=== PATIENT | male | born 1985 | race Caucasian/White ===

== ENCOUNTER 2016-11-08 02:45 | Emergency (ER) | payer BC, OTHER ==
[2016-11-08] MEDS ORDERED: Ketorolac 60 MG/2 ML SDV IM ONE (03:13)
[2016-11-08] MEDS: Proparacaine 0.5% Ophth Soln 15 ML Bottle EYEBOTH SCH ×2 (03:24→04:00)
--- NOTE | 2016-11-08 03:50 | EDM.PDOC ---
ED HPI GENERAL MEDICAL PROBLEM - General Chief Complaint: ENT Problem Stated Complaint: EYE PROBLEM Time Seen by Provider: 11/08/16 03:44 - History of Present Illness INITIAL COMMENTS - FREE TEXT/NARRATIVE: HISTORY AND PHYSICAL: History of present illness: Patient presents with concern of bilateral eye pain after prolonged contact lens use he states he was at work moving but now is irritation and light sensitivity Review of systems: As per history of present illness and below otherwise all systems reviewed and negative. Past medical history: As per history of present illness and as reviewed below otherwise noncontributory. Surgical history: As per history of present illness and as reviewed below otherwise noncontributory. Social history: No reported history of drug or alcohol abuse. Family history: As per history of present illness and as reviewed below otherwise noncontributory. Physical exam: HEENT: Atraumatic, normocephalic, pupils reactive, negative for conjunctival pallor or scleral icterus, mucous membranes moist, throat clear, neck supple, nontender, trachea midline. Conjunctiva are injected bilaterally fluorescein stain is negative no foreign body anterior chamber clear Lungs: Clear to auscultation, breath sounds equal bilaterally, chest nontender. Heart: S1S2, regular, negative for clicks, rubs, or JVD. Abdomen: Soft, nondistended, nontender. Negative for masses or hepatosplenomegaly. Negative for costovertebral tenderness. Pelvis: Stable nontender. Genitourinary: Deferred. Rectal: Deferred. Extremities: Atraumatic, negative for cords or calf pain. Neurovascular unremarkable. Neuro: Awake, alert, oriented. Cranial nerves II through XII unremarkable. Cerebellum unremarkable. Motor and sensory unremarkable throughout. Exam nonfocal. Diagnostics: See above Therapeutics: Irrigation with saline were proparacaine drops erythromycin ophthalmic ointment Impression: #1 conjunctivitis #2 iritis Definitive disposition and diagnosis as appropriate pending reevaluation and review of above. Bilateral Eye Pain Score (Numeric/FACES): 7 - Related Data Allergies Allergy/AdvReac Type Severity Reaction Status Date / Time No Known Allergies Allergy Verified 04/27/14 09:50 Home Meds: Home Meds Acetaminophen/HYDROcodone [[place] 325-5 MG] 1 - 2 tab PO Q4H #30 tablet 11/01/15 [Rx] Amoxicillin [Amoxil] 1,000 mg PO Q12HR #52 cap 11/01/15 [Rx] Clarithromycin [Biaxin] 500 mg PO BID #26 tablet 11/01/15 [Rx] Pantoprazole [Protonix] 40 mg PO BIDAC #26 tab.cr 11/01/15 [Rx] Sucralfate [Carafate] 1 gm PO QIDACANDBED #120 cup 11/01/15 [Rx] Past Medical History - Past Health History Medical/Surgical History: Denies Medical/Surgical History - Infectious Disease History Infectious Disease History: Reports: Influenza Social & Family History - Family History Family Medical History: Noncontributory - Tobacco Use Smoking Status *Q: Never Smoker Second Hand Smoke Exposure: No - Caffeine Use Caffeine Use: Reports: Energy drinks Caffeine Use Comment: 2drinks/day - Alcohol Use Days Per Week of Alcohol Use: 1 Number of Drinks Per Day: 1 Total Drinks Per Week: 1 - Recreational Drug Use Recreational Drug Use: No ED ROS GENERAL - Review of Systems Review Of Systems: ROS reveals no pertinent complaints other than HPI. ED EXAM, GENERAL - Physical Exam Exam: See Below (See dictation) Course - Vital Signs Last Recorded V/S: Last Vital Signs Temp 36.7 C 11/08/16 02:48 Pulse 75 11/08/16 02:48 Resp 18 11/08/16 02:48 BP 125/81 11/08/16 02:48 Pulse Ox 98 11/08/16 02:48 - Orders/Labs/Meds Orders: Active Orders 24 hr Category Date Time Status Proparacaine [Proparacaine 0.5% Ophth Soln] Med 11/08/16 03:15 Active 1 ml EYEBOTH STAT Medication Orders Proparacaine HCl (Proparacaine 0.5% Ophth Soln) 1 ml EYEBOTH STAT SEGUN Last Admin: 11/08/16 03:24 Dose: 2 drop Meds: Medications Generic Name Dose Route Start Last Admin Trade Name Freq PRN Reason Stop Dose Admin Proparacaine HCl 1 ml 11/08/16 03:15 11/08/16 03:24 Proparacaine 0.5% Ophth Soln EYEBOTH 2 drop STAT SEGUN Administration Discontinued Medications Generic Name Dose Route Start Last Admin Trade Name Freq PRN Reason Stop Dose Admin Ketorolac Tromethamine 60 mg 11/08/16 03:13 11/08/16 03:21 Toradol IM 11/08/16 03:14 60 mg STAT ONE Administration Departure - Departure Time of Disposition: 03:49 Disposition: Home, Self-Care 01 Condition: good Clinical Impression: Conjunctivitis, Iritis Forms: ED Department Discharge Additional Instructions: The following information is given to patients seen in the emergency department who are being discharged to home. This information is to outline your options for follow-up care. We provide all patients seen in our emergency department with a follow-up referral. The need for follow-up, as well as the timing and circumstances, are variable depending upon the specifics of your emergency department visit. If you don't have a primary care physician on staff, we will provide you with a referral. We always advise you to contact your personal physician following an emergency department visit to inform them of the circumstance of the visit and for follow-up with them and/or the need for any referrals to a consulting specialist. The emergency department will also refer you to a specialist when appropriate. This referral assures that you have the opportunity for followup care with a specialist. All of these measure are taken in an effort to provide you with optimal care, which includes your followup. Under all circumstances we always encourage you to contact your private physician who remains a resource for coordinating your care. When calling for followup care, please make the office aware that this follow-up is from your recent emergency room visit. If for any reason you are refused follow-up, please contact the [facility] emergency department at and asked to speak to the emergency department charge nurse. Erythromycin ophthalmic ointment as directed Motrin or Tylenol as directed follow up primary medical doctor one to 2 days return as needed as discussed - My Orders Last 24 Hours: My Active Orders 11/08/16 03:15 Proparacaine [Proparacaine 0.5% Ophth Soln] 1 ml EYEBOTH STAT - Assessment/Plan Last 24 Hours: My Active Orders 11/08/16 03:15 Proparacaine [Proparacaine 0.5% Ophth Soln] 1 ml EYEBOTH STAT
[2016-11-08] MEDS ORDERED: Erythromycin Base 0.5% Ophth Oint 1 GM Tube EYEBOTH ONE (03:56)
[2016-11-08 11:12] VITALS: BP 122/72
== END 2016-11-08 04:08 | disposition home or self-care (01) ==
LOC: MW.ED 02:45
DX: H10.9 Unspecified conjunctivitis (principal); H20.9 Unspecified iridocyclitis
CPT/HCPCS: 96372; 99283; A9270; J1885